=== PATIENT | female | born 1985 | race Caucasian/White ===

== ENCOUNTER 2017-02-28 15:30 | Outpatient (CLI) | payer MEDICAID ==
[2017-02-28 16:38] LABS: ABSOLUTE BASOPHILS # (AUTO) 0.1 10^3/uL (0.0-0.2); ABSOLUTE EOSINOPHILS # (AUTO) 0.1 10^3/uL (0.0-0.6); ABSOLUTE MONOCYTES (AUTO) 0.7 10^3/uL (0.1-1.4); ABSOLUTE NEUT (AUTO) 10.9 10^3/uL (1.7-8.2); BASOPHILS % (AUTO) 0.4 % (0-2); EOSINOPHILS % (AUTO) 0.8 % (0-6); HEMATOCRIT 34.8 % (36.0-47.0); HEMOGLOBIN 11.8 g/dL (12.0-15.5); HGB HCT DIFFERENCE 0.6; LYMPHOCYTES % (AUTO) 20.1 % (13-45); MEAN CORPUSCULAR HEMOGLOBIN 29.9 pg (27.0-33.4); MEAN CORPUSCULAR HGB CONC 33.9 g/dL (32.0-36.0); MEAN CORPUSCULAR VOLUME 88 fl (80-97); MONOCYTES % (AUTO) 4.9 % (3-13); RED BLOOD COUNT 3.95 10^6/uL (3.72-5.28); SEGMENTED NEUTROPHILS % (AUTO) 73.8 % (42-78); WHITE BLOOD COUNT 14.8 10^3/uL (4.0-10.5)
[2017-02-28 17:17] LABS: APPEARANCE,URINE CLEAR; BILIRUBIN,URINE NEGATIVE (NEGATIVE); GLUCOSE, URINE NEGATIVE (NEGATIVE); KETONES,URINE NEGATIVE (NEGATIVE); LEUKOCYTE ESTERASE,URINE NEGATIVE (NEGATIVE); NITRITE,URINE NEGATIVE (NEGATIVE); PROTEIN,URINE NEGATIVE (NEGATIVE); URINE SPECIFIC GRAVITY 1.005; UROBILINOGEN,URINE NEGATIVE mg/dL (<2.0)
[2017-02-28 17:43] LABS: URINE BARBITURATES SCREEN NEGATIVE; URINE METHADONE SCREEN NEGATIVE; URINE OPIATES LOW NEGATIVE; URINE PHENCYCLIDINE SCREEN NEGATIVE
[2017-02-28 19:00] LABS: TOTAL RBC COUNT 2034; TYPE IN FILE? TYPE IN FILE; VOL OF FETOMATERNAL HEMORRHAGE 0 ML (0)
== END 2017-02-28 17:32 | disposition home or self-care (01) ==
LOC: LC 15:30
PROVIDERS: ATTEND Obstetrics & Gynecology
PROC: 4A1HXCZ Monitoring of Products of Conception, Cardiac Rate, External Approach (ICD-10-PCS; principal; 2017-02-28)
DX: O46.92 Antepartum hemorrhage, unspecified, second trimester (principal); Z3A.23 23 weeks gestation of pregnancy
CPT/HCPCS: 36415; 80307; 81001; 82962; 85025; 85460; 86900; 86901

== ENCOUNTER 2017-05-13 12:38 | Outpatient (CLI) | payer MEDICAID | END 2017-05-13 13:20 | disposition home or self-care (01) | LOC: ER 12:38 → LC 13:20 | PROVIDERS: ATTEND Obstetrics & Gynecology | PROC: 4A1HXCZ Monitoring of Products of Conception, Cardiac Rate, External Approach (ICD-10-PCS; principal; 2017-05-13) | DX: O36.8130 Decreased fetal movements, third trimester, not applicable or unspecified (principal); Z3A.34 34 weeks gestation of pregnancy | CPT/HCPCS: 59025 ==

== ENCOUNTER 2017-05-16 15:17 | Outpatient (CLI) | payer MEDICAID ==
--- NOTE | 2017-05-16 16:04 | Non Stress Test Report ---
Non Stress Test Datetime Report Generated by CPN: 05/16/2017 16:04 DEMOGRAPHIC EGA NST: 34.4 INDICATION Indication for Study: Ordered by Provider MONITORING Monitor Explained: Monitor Explained; Test Explained; Patient Verbalized Understanding Time on Monitor: 05/16/2017 15:27 Time off Monitor: 05/16/2017 15:48 NST Duration: 21 NST INTERVENTIONS NST Interventions: PO Hydration; Reposition Patient Physician Notified NST: Dr. Masood BABY A: [id number] BABY A Movement : Present Contraction Frequency : 6-7 FHR Baseline : 125 Accelerations : 15X15 Decelerations : None Variability : Moderate 6-25bpm NST Review: Meets Criteria for Reactive NST NST Review and Verified By : SHELTON Quezada Results: Reactive NST REPORT Report Trigger: Send Report
== END 2017-05-16 15:58 | disposition home or self-care (01) ==
LOC: LC 15:17
PROVIDERS: ATTEND Specialist
PROC: 4A1HXCZ Monitoring of Products of Conception, Cardiac Rate, External Approach (ICD-10-PCS; principal; 2017-05-16)
DX: Z34.93 Encounter for supervision of normal pregnancy, unspecified, third trimester (principal)
CPT/HCPCS: 59025

== ENCOUNTER 2017-06-06 22:23 | Outpatient (CLI) | payer MEDICAID ==
[2017-06-06 22:57] LABS: APPEARANCE,URINE CLEAR; BILIRUBIN,URINE NEGATIVE (NEGATIVE); GLUCOSE, URINE 50 mg/dL (NEGATIVE); KETONES,URINE NEGATIVE (NEGATIVE); LEUKOCYTE ESTERASE,URINE NEGATIVE (NEGATIVE); NITRITE,URINE NEGATIVE (NEGATIVE); PROTEIN,URINE NEGATIVE (NEGATIVE); URINE SPECIFIC GRAVITY 1.002; UROBILINOGEN,URINE NEGATIVE mg/dL (<2.0)
[2017-06-06 23:12] LABS: URINE BARBITURATES SCREEN NEGATIVE; URINE METHADONE SCREEN NEGATIVE; URINE OPIATES LOW NEGATIVE; URINE PHENCYCLIDINE SCREEN NEGATIVE
[2017-06-07] MEDS ORDERED: ONDANSETRON 4 MG TAB.RAPDIS PO ONE (00:14)
[2017-06-07] MEDS ORDERED: HYDROXYZINE PAMOATE 50 MG CAPSULE PO ONE (00:14)
[2017-06-07] MEDS ORDERED: HYDROXYZINE PAMOATE 50 MG CAPSULE ONE (00:18)
[2017-06-07] MEDS ORDERED: ONDANSETRON 4 MG TAB.RAPDIS ONE (00:19)
--- NOTE | 2017-06-07 00:44 | Non Stress Test Report ---
Non Stress Test Datetime Report Generated by CPN: 06/07/2017 00:44 DEMOGRAPHIC Test Number: 4 EGA NST: 37.4 INDICATION Indication for Study: Ordered by Provider; Other Indication for Study (NST) Other: LC MONITORING Monitor Explained: Monitor Explained; Test Explained; Patient Verbalized Understanding; Other Time on Monitor: 06/06/2017 22:39 Time off Monitor: 06/07/2017 00:02 NST Duration: 83 NST INTERVENTIONS NST Interventions: PO Hydration Physician Notified NST: yes BABY A: [id number] BABY A Movement : Present Contraction Frequency : 8-13 FHR Baseline : 125 Accelerations : 15X15 Decelerations : None Variability : Moderate 6-25bpm NST Review: Meets Criteria for Reactive NST NST Review and Verified By : Deanna Stanford RN NST Results: Reactive NST REPORT Report Trigger: Send Report
== END 2017-06-07 00:02 | disposition home or self-care (01) ==
LOC: LC 22:23
PROVIDERS: ATTEND Obstetrics & Gynecology Gynecology
PROC: 4A1HXCZ Monitoring of Products of Conception, Cardiac Rate, External Approach (ICD-10-PCS; principal; 2017-06-06)
DX: O47.1 False labor at or after 37 completed weeks of gestation (principal); Z3A.37 37 weeks gestation of pregnancy
CPT/HCPCS: 81005; 80307; 59025; S0119; J3490

== ENCOUNTER 2017-06-12 22:55 | Outpatient (CLI) | payer MEDICAID ==
[2017-06-12 23:33] LABS: APPEARANCE,URINE CLOUDY; BILIRUBIN,URINE NEGATIVE (NEGATIVE); GLUCOSE, URINE NEGATIVE (NEGATIVE); KETONES,URINE NEGATIVE (NEGATIVE); LEUKOCYTE ESTERASE,URINE TRACE (NEGATIVE); NITRITE,URINE NEGATIVE (NEGATIVE); PROTEIN,URINE NEGATIVE (NEGATIVE); URINE SPECIFIC GRAVITY 1.009; UROBILINOGEN,URINE NEGATIVE mg/dL (<2.0)
[2017-06-12 23:53] LABS: URINE BARBITURATES SCREEN NEGATIVE; URINE METHADONE SCREEN NEGATIVE; URINE OPIATES LOW NEGATIVE; URINE PHENCYCLIDINE SCREEN NEGATIVE
== END 2017-06-13 00:39 | disposition home or self-care (01) ==
LOC: LC 22:55
PROVIDERS: ATTEND Obstetrics & Gynecology
PROC: 4A1HXCZ Monitoring of Products of Conception, Cardiac Rate, External Approach (ICD-10-PCS; principal; 2017-06-12)
DX: O47.1 False labor at or after 37 completed weeks of gestation (principal); Z3A.38 38 weeks gestation of pregnancy
CPT/HCPCS: 59025; 80307; 81005

== ENCOUNTER 2017-06-13 07:41 | Inpatient (IN) | payer MEDICAID ==
[2017-06-13 08:19] LABS: APPEARANCE,URINE SLIGHTLY-CLOUDY; BILIRUBIN,URINE NEGATIVE (NEGATIVE); GLUCOSE, URINE NEGATIVE (NEGATIVE); KETONES,URINE NEGATIVE (NEGATIVE); LEUKOCYTE ESTERASE,URINE TRACE (NEGATIVE); NITRITE,URINE NEGATIVE (NEGATIVE); PROTEIN,URINE NEGATIVE (NEGATIVE); URINE SPECIFIC GRAVITY 1.012; UROBILINOGEN,URINE NEGATIVE mg/dL (<2.0)
[2017-06-13] MEDS ORDERED: IBUPROFEN 800 MG TABLET ONE (08:33)
[2017-06-13] MEDS ORDERED: ACETAMINOPHEN WITH CODEINE #3 TABLET ONE (08:33)
[2017-06-13 08:38] LABS: URINE BARBITURATES SCREEN NEGATIVE; URINE METHADONE SCREEN NEGATIVE; URINE OPIATES LOW NEGATIVE; URINE PHENCYCLIDINE SCREEN NEGATIVE
[2017-06-13 09:03] LABS: HEMATOCRIT 39.4 % (36.0-47.0); HEMOGLOBIN 13.2 g/dL (12.0-15.5); HGB HCT DIFFERENCE 0.2; MEAN CORPUSCULAR HEMOGLOBIN 29.4 pg (27.0-33.4); MEAN CORPUSCULAR HGB CONC 33.5 g/dL (32.0-36.0); MEAN CORPUSCULAR VOLUME 88 fl (80-97); RED BLOOD COUNT 4.48 10^6/uL (3.72-5.28); RED CELL DISTRIBUTION WIDTH 14.2 % (11.5-14.0); WHITE BLOOD COUNT 21.7 10^3/uL (4.0-10.5)
[2017-06-13 09:24] LABS: BASOPHILS % (MANUAL) 0 % (0-2); EOSINOPHILS % (MANUAL) 0 % (0-6); LYMPHOCYTES % (MANUAL) 14 % (13-45); TOTAL CELLS COUNTED 100
[2017-06-13 09:25] LABS: ANISOCYTOSIS SLIGHT; POIKILOCYTOSIS SLIGHT; TEAR DROP CELLS SLIGHT; TOXIC GRANULATION SLIGHT
[2017-06-13] MEDS ORDERED: DIPHENHYDRAMINE HCL 25 MG CAPSULE PO PRN (09:25)
[2017-06-13] MEDS ORDERED: MEASLES,MUMPS&RUBELLA VACC/PF 0.5 ML VIAL SUBCUT PRN (09:25)
[2017-06-13] MEDS ORDERED: ZOLPIDEM TARTRATE 5 MG TABLET PO PRN (09:25)
[2017-06-13] MEDS ORDERED: DIBUCAINE 1% OINTMENT 28 GM TP PRN (09:25)
[2017-06-13] MEDS ORDERED: MISOPROSTOL 0.2 MG TABLET PR PRN (09:25)
[2017-06-13] MEDS ORDERED: ACETAMINOPHEN 650 MG SUPP.RECT PR PRN (09:25)
[2017-06-13] MEDS ORDERED: NA PHOS,M-B/NA PHOS,DI-BA (ADULT) 133 ML ENEMA PR PRN (09:25)
[2017-06-13] MEDS ORDERED: OXYTOCIN/NORMAL SALINE 20 UNIT/1,000 ML RTUINJ IV PRN (09:25)
[2017-06-13] MEDS ORDERED: PSEUDOEPHEDRINE HCL 30 MG TABLET PO PRN (09:25)
[2017-06-13] MEDS ORDERED: GLYCERIN/WITCH HAZEL LEAF 1 EACH MED..PAD TP PRN (09:25)
[2017-06-13] MEDS ORDERED: PROMETHAZINE HCL INJ 25 MG/1 ML VIAL IV PRN (09:25)
[2017-06-13] MEDS ORDERED: BENZOCAINE/MENTHOL AEROSOL SPRAY 56 ML TOP PRN (09:25)
[2017-06-13] MEDS ORDERED: PROMETHAZINE HCL 25 MG TABLET PO PRN (09:25)
[2017-06-13] MEDS ORDERED: ACETAMINOPHEN WITH CODEINE #3 TABLET PO PRN (09:25)
[2017-06-13] MEDS ORDERED: PROMETHAZINE HCL 25 MG SUPP.RECT PR PRN (09:25)
[2017-06-13] MEDS ORDERED: MAGNESIUM HYDROXIDE SUSP 30 ML UDCUP PO PRN (09:25)
[2017-06-13] MEDS ORDERED: DIPH/PERTUSS(ACELL)/TETANUS VAC/PF 0.5 ML SYR (>=10YO) IM PRN (09:25)
[2017-06-13] MEDS ORDERED: MORPHINE SULFATE 10 MG/ML INJ ONE (09:29)
[2017-06-13] MEDS ORDERED: MORPHINE SULFATE 10 MG/ML INJ IV ONE (09:30)
--- NOTE | 2017-06-13 09:46 | Delivery Summary ---
Del Sum A-C Datetime Report Generated by CPN: 06/13/2017 09:46 DELIVERY PERSONNEL DELIVERY PERSONNEL: [id number] Delivery Doctor:: Asmita Galarza CNM Labor and Delivery Nurse:: Juju Balbuena RNpatient support partner Nurse:: Karyna Correia RN Nursery Nurse:: Lanie Ansari RN Animal Control Licensing Worker/TALENT ANALYST: Asuncion Siegel Additional Personnel: : Maria Ines Suárez RN MATERNAL INFORMATION Delivery Anesthesia: None Medications After Delivery: Pitocin Bolus-Please Comment; Pitocin Drip 20 Units/1000ml NSS; Other-Please Comment Meds After Delivery Comment: Pitocin 20 units in 1 L NS bolusing per order Cytotec 1000mcg ND Estimated Blood Loss (ml): 100 Maternal Complications: Precipitous Labor (<3hrs) Provider Comments: Pt. quickly progressed from 4 to 8 to 9-complete and pushed baby through with tight nuchal x1. Baby with vigorous respiratory effort and cry spontaneously at . Short cord, allowed to stop pulsating then clamped x2 and cut by FOB. Baby to maternal abdomen skin to skin (3vc noted). Placenta delivered spontaneously intact. Vaginal and perineal inspection revealed no lacerations. Fundus firm @ U, bleeding stable. Mother and baby remain skin to skin,stable and bonding. LABOR SUMMARY EDC: 06/23/2017 00:00 No. Babies in Womb: 1 Attempted: No Labor Anesthesia: None LABOR INFORMATION Reason for Induction: Not Applicable Onset of Labor: 06/13/2017 02:00 Complete Dilatation: 06/13/2017 08:14 Oxytocin: N/A Group B Beta Strep: NEGATIVE Antibiotics # of Doses: 0 Antibiotics Time of Last Dose: n/a Name of Antibiotic Given: n/a Steroids Given: None Reason Steroids Not Administered: Not Applicable MEMBRANES Membranes Rupture Method: Artificial Rupture of Membranes: 06/13/2017 08:11 Length of Rupture (hr): 0.07 Amniotic Fluid Color: Clear Amniotic Fluid Amount: Moderate Amniotic Fluid Odor: Normal STAGES OF LABOR Stage 1 hr: 6 Stage 1 min: 14 Stage 2 hr: 0 Stage 2 min: 1 Stage 3 hr: 0 Stage 3 min: 7 Total Time in Labor hr: 6 Total Time in Labor min: 22 VAGINAL DELIVERY Episiotomy: None Laceration #1: None Laceration Extension #1: N/A Laceration Repair: Not Applicable Sponge Count Correct: N/A Sharps Count Correct: N/A CSECTION DELIVERY Primary Indication: N/A Secondary Indication: N/A CSection Incidence: N/A Labor: N/A Elective: N/A CSection Incision: N/A BABY A INFORMATION Delivery Date/Time: 06/13/2017 08:15 Method of Delivery: Vaginal Born in Route : No : N/A Forceps: N/A Vacuum Extraction: N/A Shoulder Dystocia : No PRESENTATION/POSITION BABY A Presentation: Cephalic Cephalic Presentation: Vertex Vertex Position: Right Occipital Anterior Breech Presentation: N/A PLACENTA INFORMATION BABY A Placenta Delivery Time : 06/13/2017 08:22 Placenta Method of Delivery: Spontaneous Placenta Status: Delivered SCORES BABY A Heart Rate 1 min: >100 bpm Resp Effort 1 min: Good Cry Reflex Irritability 1 min: Cough or Sneeze or Pulls Away Muscle Tone 1 min: Active Motion Color 1 min: Blue/Pale Resuscitation Effort 1 min: Tactile Stimulation SCORE 1 MIN: 8 Heart Rate 5 min: >100 bpm Resp Effort 5 min: Good Cry Reflex Irritability 5 min: Cough or Sneeze or Pulls Away Muscle Tone 5 min: Active Motion Color 5 min: Body [place], Extremities Blue Resuscitation Effort 5 min: Tactile Stimulation SCORE 5 MIN: 9 INFANT INFORMATION BABY A Gestational Age at Delivery: 38.4 Gestational Status: Early Term- 37- 38.6 Weeks Infant Outcome : Liveborn Condition : Stable Infant Sex: Male IDENTIFICATION BABY A Verification Date/Time: 06/13/2017 08:41 ID Band Number: [id number] Mother's Name Verified: Yes RN Verifying Infant: A Surendra CHINO Additional Verifying Personnel: D Aspenmomoidbina RNC WEIGHT/LENGTH BABY A Infant Birthweight (gm): 3300 Weight (lb): 7 Infant Weight (oz): 4 Length (in): 20.50 Length (cm): 52.07 CORD INFORMATION BABY A No. Cord Vessels: 3 Nuchal Cord : Around Neck x1, Tight Cord Blood Taken: Yes-For Eval (Mom's Blood Type - or O+) Infant Suction: Mouth; Nose ASSESSMENT BABY A Infant Complications: Extended Bradycardia; Other Infant Complications- Other: terminal meconium Physical Findings at Delivery: Puncture Wound from Scalp Electrode Physical Findings- Other: first void at delivery Respirations: Appears Normal Skin to Skin: Yes Skin to Skin Time (min): 60 Restaurant Greeter/ALS Called : No Infant Care By: Kelvin Correia RN Transferred To: Remains with Mother BABY B INFORMATION : N/A SIGNATURES Assignment: Karen Correia MD Signature: with User ID: Filemon : with User ID: [email or web address]
[2017-06-13] MEDS ORDERED: NORMAL SALINE 250 ML IV PRN (10:09)
--- NOTE | 2017-06-13 10:26 | Admission Physical ---
Datetime Report Generated by CPN: 06/13/2017 10:26 CURRENT ADMISSION Chief Complaint: Uterine Contractions Indication for Induction: Not Applicable Indication for Induction: Term, Intrauterine ; Active Labor Admit Plan: Admit to Unit; Initiate Labor Protocol ALLERGIES Medication Allergies: No Medication Allergies: No Known Allergies (06/12/2017) Medication Allergies: No Known Allergies (06/06/2017) Medication Allergies: No Known Allergies (05/30/2017) Medication Allergies: No Known Allergies (05/16/2017) Medication Allergies: No Known Allergies (05/13/2017) Medication Allergies: No Known Allergies (02/28/2017) Medication Allergies: No Known Allergies (10/18/2013) Latex: No Latex Allergies Food Allergies: N/A Environmental Allergies: N/A OBSTETRICAL HISTORY EDC: 06/23/2017 00:00 : 5 Para: 3 Term: 3 : 0 SAB: 1 IAB: 0 Ectopic: 0 Livin Cesareans: 0 VBACs: 0 Multiple Births: 0 Gestational Diabetes: No Rh Sensitization: No Incompetent Cervix: No TYLER: No Infertility: No ART Treatment: No Uterine Anomaly: No IUGR: No Hx Previous C/S: No Macrosomia: No Hx Loss/Stillborn: No PIH: No Hx : No Placenta Previa/Abruption: No Depression/PP Depression: No PTL/PROM: No Post Hemorrhage: No Current Procedures: Ultrasound; NST; Amniocentesis/Genetic Obstetrical History Comments: G1: 40 weeks 2008 G2: SAB G3: 38 weeks 2010 G4: 39.4 2013 G5: Current , pt states previa cleared at 30 weeks gestation, and that fetus flagged for Trisomy 18 but growth scans showed its not a concern, poly. SEE RECORDS Alcohol: No Marijuana : No Cocaine: No Other Illicit Drugs: No Cigarettes: Current Some Day Smoker. [id number] Cigarette Frequency: 5 - 10 per day Advised to Stop: Yes MEDICAL HISTORY Diabetes: No Blood Transfusion: No Pulmonary Disease (Asthma, TB): No Breast Disease: No Hypertension: No [place] Roofer Surgery: No Heart Disease: No Hosp/Surgery: Yes Autoimmune Disorder: No Anesthetic Complications: No Kidney Disease: No Abnormal Pap Smear: No Neuro/Epilepsy: No Psychiatric Disorders: No Other Medical Diseases: No Hepatitis/Liver Disease: No Significant Family History: No Varicosities/Phlebitis: No Trauma/Violence : No Thyroid Dysfunction: No Medical History Comments: lap neal in 2009, tonsillectomy 1991, D_C in 2010 Rhogam on 11-02-2016 INFECTIOUS HISTORY Gonorrhea: No Genital Herpes: No Chlamydia: No Tuberculosis: No Syphilis: No Hepatitis: No HIV/AIDS Exposure: No Rash or Viral Illness: Yes HPV: No Infectious History Comments: Ringworm in 03/2017 tx with diflucan PHYSICAL EXAM General: Normal Neurologic: Normal Heart: Normal Lungs: Normal Extremities: Normal Pelvic Type: Adequate Physical Exam Comments: Exam done after delivery. Pt. presented to unit and quickly delivered a viable baby boy. Vital Signs: Reviewed; Within Normal Limits VAGINAL EXAM Dilatation: 8 Effacement: 100 Station: -1 Contraction Comments: q2min MEMBRANES Membranes: Ruptured Amniotic Fluid Color: Clear FETUS A EGA: 38.4 Monitoring: External US; Internal Scalp Electrode FHR- Baseline: 110 FHR Comments: Pt. on monitor for 4 min with moderate variability then prolonged decel followed by delivery Admit Comment: 31yo @ 38w4d into L_D with UC since yesterday that worsen after being discharged at 0130. Pt. was 4cm on arrival then as I arrived in L_D pt. had decel I went into room and after position changes baby recovered on and off to 110s. We continued position chagnes and pt. progressed to 8-9/c/-1 with bulbing bag and was AROM with FSE. With next contraction pt. started pushing and quickly delivered a baby boy through tight nuchal x1. complicated by pos. quad screen for T18 with negative NIP screen, a placenta previa that was resolved earlier in and current smoker. Blood type O neg and GBS Neg. PLANS FOR LABOR AND DELIVERY Labor and Delivery: None Pain Management: Medications; Epidural Feeding Preference: Breast Benefit of Breast Feed Discussed: Yes Circumcision: Yes INFORMED CONSENT Assignment: Karen Correia MD Signature: with User ID: Filemon : with User ID: Filemon
[2017-06-13] MEDS: PRENATAL VITAMIN W DHA CAPSULE PO SCH (10:36)
[2017-06-13] MEDS: FAMOTIDINE 20 MG TABLET PO SCH ×2 (10:36→22:12)
[2017-06-13] MEDS: FERROUS SULFATE 325 MG TABLET PO SCH ×2 (10:37→17:18)
[2017-06-13] MEDS: DOCUSATE SODIUM 100 MG CAPSULE PO SCH ×2 (10:37→17:18)
[2017-06-13] MEDS: SENNOSIDES/DOCUSATE 8.6-50 MG 1 EACH TABLET PO SCH (10:37)
[2017-06-13] MEDS: IBUPROFEN 800 MG TABLET PO SCH ×2 (13:14→22:12)
[2017-06-13] MEDS: ACETAMINOPHEN WITH CODEINE #3 TABLET PO PRN ×3 (14:25→22:13)
[2017-06-13 20:36] VITALS: BP 124/54
[2017-06-14] MEDS: ACETAMINOPHEN WITH CODEINE #3 TABLET PO PRN ×4 (02:54→18:03)
[2017-06-14] MEDS: IBUPROFEN 800 MG TABLET PO SCH ×2 (05:10→14:16)
[2017-06-14 08:11] LABS: HEMATOCRIT 36.5 % (36.0-47.0); HEMOGLOBIN 12.2 g/dL (12.0-15.5); HGB HCT DIFFERENCE 0.1; MEAN CORPUSCULAR HEMOGLOBIN 29.6 pg (27.0-33.4); MEAN CORPUSCULAR HGB CONC 33.4 g/dL (32.0-36.0); MEAN CORPUSCULAR VOLUME 89 fl (80-97); RED BLOOD COUNT 4.12 10^6/uL (3.72-5.28); RED CELL DISTRIBUTION WIDTH 14.1 % (11.5-14.0); WHITE BLOOD COUNT 16.3 10^3/uL (4.0-10.5)
--- NOTE | 2017-06-14 09:04 | PDOC PROGRESS REPORT ---
Subjective-OB Subjective: Post Delivery Day: 1 32 year old. Denies any needs at this time, voiding without difficulty, tolerating diet, pain is well controlled. Would like early d/c if possible. Physical Exam (OB) Vital Signs: Temp Pulse Resp BP Pulse Ox 98.2 F 66 18 124/54 L 98 06/13/17 19:35 06/13/17 19:35 06/13/17 19:35 06/13/17 19:35 06/13/17 19:35 Intake & Output 06/13/17 06/14/17 06/15/17 06:59 06:59 06:59 Weight 90 kg - PIH/Pre-Eclampsia Clonus: Negative Headache: Absent Epigastric Pain: No Visual Changes: No - Lochia Lochia Amount: Scant < 10 ml Lochia Color: Rubra/Red - Abdomen Description: Soft, Round Hernia Present: No Fundal Description: Firm Fundal Height: u/u - u/2 Objective-Diagnostic Laboratory: 06/14/17 08:00 06/13/17 06/13/17 06/14/17 08:48 08:48 07:54 WBC 21.7 H RBC 4.48 Hgb 13.2 Hct 39.4 MCV 88 MCH 29.4 MCHC 33.5 RDW 14.2 H Plt Count 257 Seg Neutrophils % Not Reportable Lymphocytes % Not Reportable Monocytes % Not Reportable Eosinophils % Not Reportable Basophils % Not Reportable Absolute Neutrophils Not Reportable Absolute Lymphocytes Not Reportable Absolute Monocytes Not Reportable Absolute Eosinophils Not Reportable Absolute Basophils Not Reportable Blood Type O NEGATIVE Cancelled Antibody Screen POSITIVE 06/14/17 08:00 WBC 16.3 H RBC 4.12 Hgb 12.2 Hct 36.5 MCV 89 MCH 29.6 MCHC 33.4 RDW 14.1 H Plt Count 235 Seg Neutrophils % Lymphocytes % Monocytes % Eosinophils % Basophils % Absolute Neutrophils Absolute Lymphocytes Absolute Monocytes Absolute Eosinophils Absolute Basophils Blood Type Antibody Screen Assessment and Plan(PN) - Assessment and Plan (1) Vaginal delivery Is this a current diagnosis for this admission?: Yes Plan: routine pp care may d/c home today if baby is d/c home, may cancel d/c if not. - Time Spent with Patient Time with patient: Less than 15 minutes Critical Time spent with patient: Less than 15 minutes Medications reviewed and adjusted accordingly: Yes - Disposition Anticipated Discharge: Home Within: within 24 hours
--- NOTE | 2017-06-14 09:12 | PDOC DISCHARGE SUMMARY ---
Final Diagnosis Discharge Date: 06/14/17 - Final Diagnosis (1) Vaginal delivery Is this a current diagnosis for this admission?: Yes Discharge Data - Discharge Medication Home Medications: Vits96/Iron Fum/Folic [ Tablet] 1 each PO DAILY 05/23/11 Docusate Sodium [Colace 100 mg Capsule] 100 mg PO BID #60 capsule 06/14/17 Ibuprofen [Motrin 800 mg Tablet] 800 mg PO Q8 #60 tablet 06/14/17 Gestational Age: 38.4 Reason(s) for Admission: Onset of Labor Procedures: NST Intrapartum Procedure(s): Spontaneous Vaginal Delivery - [place] Data Baby 1 Male at 1 minute: 8 at 5 minutes: 9 Weight: 3300 kg Home with Mother: Yes Complications: No - Diagnosis Test Laboratory: Temp Pulse Resp BP Pulse Ox 98.2 F 66 18 124/54 L 98 06/13/17 19:35 06/13/17 19:35 06/13/17 19:35 06/13/17 19:35 06/13/17 19:35 06/13/17 06/13/17 06/14/17 07:50 08:48 08:00 RBC 4.48 4.12 Hgb 13.2 12.2 Hct 39.4 36.5 Urine Opiates Screen NEGATIVE - Discharge information/Instructions Discharge Activity: Activity As Tolerated, Pelvic Rest, No tub bath Discharge Diet: Regular Disposition: HOME, SELF-CARE Follow up with: [facility] in: 4, Weeks
[2017-06-14] MEDS: DOCUSATE SODIUM 100 MG CAPSULE PO SCH ×2 (09:37→17:33)
[2017-06-14] MEDS: FAMOTIDINE 20 MG TABLET PO SCH (09:37)
[2017-06-14] MEDS: FERROUS SULFATE 325 MG TABLET PO SCH ×2 (09:37→17:33)
[2017-06-14] MEDS: PRENATAL VITAMIN W DHA CAPSULE PO SCH (09:37)
[2017-06-14] MEDS: SENNOSIDES/DOCUSATE 8.6-50 MG 1 EACH TABLET PO SCH (09:38)
--- NOTE | 2017-06-14 13:38 | Warning Signs in Babies ---
VOD Warning Signs Datetime Report Generated by [facility]: 06/14/2017 13:37 VOD - Warning Signs in Babies: Needs to be viewed. (06/14/2017 13:37:Annalee Enamorado)
--- NOTE | 2017-06-14 13:38 | Warning Signs in Babies ---
VOD Warning Signs Datetime Report Generated by [facility]: 06/14/2017 13:38 VOD - Warning Signs in Babies: Needs to be viewed. (06/14/2017 13:37:Annalee Enamorado)
--- NOTE | 2017-06-14 13:57 | Warning Signs in Babies ---
VOD Warning Signs Datetime Report Generated by [facility]: 06/14/2017 13:56 VOD - Warning Signs in Babies: Needs to be viewed. (06/14/2017 13:56:Annalee Enamorado)
--- NOTE | 2017-06-14 13:57 | Warning Signs in Babies ---
VOD Warning Signs Datetime Report Generated by [facility]: 06/14/2017 13:57 VOD - Warning Signs in Babies: Needs to be viewed. (06/14/2017 13:56:Annalee Enamorado)
== END 2017-06-14 19:09 | disposition home or self-care (01) | DRG 775 ==
LOC: LC 07:41 → LR 08:15 → 2S 10:24
PROVIDERS: ADMIT Obstetrics & Gynecology; ATTEND Obstetrics & Gynecology
PROC: 10E0XZZ Delivery of Products of Conception, External Approach (ICD-10-PCS; principal; 2017-06-13)
PROC: 4A1HXCZ Monitoring of Products of Conception, Cardiac Rate, External Approach (ICD-10-PCS; 2017-06-13)
PROC: 10907ZC Drainage of Amniotic Fluid, Therapeutic from Products of Conception, Via Natural or Artificial Opening (ICD-10-PCS; 2017-06-13)
PROC: 4A1H7CZ Monitoring of Products of Conception, Cardiac Rate, Via Natural or Artificial Opening (ICD-10-PCS; 2017-06-13)
PROC: 10H073Z Insertion of Monitoring Electrode into Products of Conception, Via Natural or Artificial Opening (ICD-10-PCS; 2017-06-13)
PROC: 3E0234Z Introduction of Serum, Toxoid and Vaccine into Muscle, Percutaneous Approach (ICD-10-PCS; 2017-06-14)
DX: O76 Abnormality in fetal heart rate and rhythm complicating labor and delivery (principal); O77.0 Labor and delivery complicated by meconium in amniotic fluid; O99.334 Smoking (tobacco) complicating childbirth; F17.210 Nicotine dependence, cigarettes, uncomplicated; O69.1XX0 Labor and delivery complicated by cord around neck, with compression, not applicable or unspecified; O26.893 Other specified pregnancy related conditions, third trimester; O62.3 Precipitate labor; O69.3XX0 Labor and delivery complicated by short cord, not applicable or unspecified; Z3A.38 38 weeks gestation of pregnancy; Z90.49 Acquired absence of other specified parts of digestive tract; Z67.41 Type O blood, Rh negative; Z37.0 Single live birth
CPT/HCPCS: 36415; 80307; 81005; 85025; 85027; 85461; 86592; 86850; 86870; 86900; 86901; 86920; 86922; J2270; J2590; J2790; J3490

== ENCOUNTER 2020-06-29 14:16 | Emergency (ER) | payer SELFPAY ==
--- NOTE | 2020-06-29 15:18 | ER Document Report ---
ED Hand/Wrist Injury - General Chief Complaint: Wrist Injury Stated Complaint: FALL/RIGHT HAND PAIN,SWELLING Time Seen by Provider: 06/29/20 14:49 Primary Care Provider: HARVEY ALBA MD [ACTIVE STAFF] - Follow up as needed Mode of Arrival: Ambulatory Information source: [facility], [facility] Records Notes: This 35-year-old female patient comes emergency room complaining of injury to her right hand. She reports a syncopal episode while standing in the shower about 7 AM this morning. She says she was washing her hair, felt a sensation like she was going to pass out, fell in the tub where her spouse found her and was waking her up shortly after the fall. She states that her right ribs are little sore, and the right lateral elbow with primary pain and swelling in the right dorsal hand. She reports she has had 2 other episodes of syncope this past year, one was whil e she was in the shower similar to the day, 1 was while she was doing laundry and bending over putting clothes in the dryer. She has not been evaluated for the syncopal episodes. She did see her doctor yesterday for a red right eye with drainage for the past 5 to 6 days. She was put on an antibiotic eyedrop. TRAVEL OUTSIDE OF THE [place] IN LAST 30 DAYS: No - Related Data Allergies/Adverse Reactions: No Known Allergies Allergy (Verified 06/29/20 14:58) Past Medical History - General Information source: Patient - `, [facility] Records - Social History Smoking Status: Current Every Day Smoker Cigarette use (# per day): Yes - 1/3 PPD Chew tobacco use (# tins/day): No Smoking Education Provided: No Frequency of alcohol use: None Drug Abuse: None Lives with: Family, Spouse/Significant other Family History: Reviewed & Not Pertinent Patient has homicidal ideation: No - Medical History Medical History: Negative Infectious Medical History: Reports: Other - COVID-19 infection in February 2020. Past Surgical History: Reports: Hx Cholecystectomy, Hx Dilation and Curettage, Hx Orthopedic Surgery - Toe surgery, Hx Tonsillectomy - Immunizations Hx Diphtheria, Pertussis, Tetanus Vaccination: No Review of Systems - Review of Systems Constitutional: No symptoms reported EENT: No symptoms reported Cardiovascular: See HPI, Syncope Respiratory: No symptoms reported Gastrointestinal: No symptoms reported Genitourinary: No symptoms reported Female Genitourinary: No symptoms reported Musculoskeletal: No symptoms reported Skin: No symptoms reported Hematologic/Lymphatic: No symptoms reported Neurological/Psychological: See HPI Physical Exam - Vital signs Vitals: Temp Pulse Resp BP Pulse Ox 99.1 F 94 16 114/77 96 06/29/20 14:40 06/29/20 14:40 06/29/20 14:40 06/29/20 14:40 06/29/20 14:40 Interpretation: Normal - General General appearance: Appears well, Alert In distress: None - HEENT Head: Normocephalic, Atraumatic Conjunctiva: Injected - The right conjunctiva is injected with some crusting and drainage. There are no preauricular nodes palpated. Pupils: PERRL - Respiratory Respiratory status: No respiratory distress Breath sounds: Normal Chest palpation: Tender - Some right lateral rib tenderness - Cardiovascular Rhythm: Regular Heart sounds: Normal auscultation Murmur: No - Abdominal Inspection: Normal - Back Back: Normal - Extremities General upper extremity: Other - Right dorsal hand is swollen and painful dorsally over the second metacarpal, first webspace, and base of the first metacarpal. General lower extremity: Normal inspection - Neurological Neuro grossly intact: Yes - Psychological Associated symptoms: Normal affect, Normal mood - Skin Skin Temperature: Warm Skin Moisture: Dry Skin Color: Normal Course - Re-evaluation Re-evalutation: 06/29/20 16:48 Velcro cock-up splint was placed on the right hand and wrist by the PCT. It fits well and prevents motion at the hand where the injury is. - Vital Signs Vital signs: Temp Pulse Resp BP Pulse Ox 99.1 F 94 16 114/77 96 06/29/20 14:40 06/29/20 14:40 06/29/20 14:40 06/29/20 14:40 06/29/20 14:40 - Laboratory Result Diagrams: 06/29/20 15:42 06/29/20 15:42 Laboratory results interpreted by me: 06/29/20 15:42 WBC 12.9 H RDW 14.1 H - Diagnostic Test Radiology reviewed: Image reviewed, Reports reviewed - Right rib x-ray with PA chest is unremarkable. Right hand x-ray does not show osseous injury. - EKG Interpretation by Me EKG shows normal: Sinus rhythm, [place], Intervals, QRS Complexes, ST-T Waves Rate: Normal - 76 Rhythm: NSR Discharge - Discharge Clinical Impression: Syncope and collapse Contusion of right hand Qualifiers: Encounter type: initial encounter Qualified Code(s): S60.221A - Contusion of right hand, initial encounter Condition: Stable Disposition: HOME, SELF-CARE Additional Instructions: Syncopal Episode Syncope (fainting or near-fainting) can occur from many different health problems. Or it can be a simple fainting spell requiring no treatment. It is safe for you to go home, but further evaluation will likely be necessary. Your work-up may include tests for internal bleeding, heart disease, medication problems, or near-strokes. Tests are not always required, however, depending on the nature of your problem. The warning signs of an impending faint include: dizziness, lightheadedness, nausea, hot flashes, tingling, and weakness. If this happens, lay down and put your feet up, then wait until all of these symptoms have passed before standing up again. If these episodes become recurrent, or if you develop chest pain, heart palpitations, mental confusion, blurred vision, or headache, then you should call the physician, or go to the emergency room. Hand Contusion Your injury has resulted in a contusion -- a crushing of the deep tissues. No injury to important structures was detected during the physician's exam. Contusions vary in the amount of pain they cause, and in the length of time required for healing. Typically, the area will become bruised, and will remain painful to touch for two or three weeks. However, most patients are back to working and playing within a few days. After the initial period of rest and cold-packs, your symptoms (together with the doctor's recommendations) will determine how rapidly you can get back to full activity. Usually this means "do what feels okay, but don't do things that hurt." If re-examination was recommended, it's important to follow up as instructed. Call the doctor or return any time if pain increases, if swelling becomes severe, if you develop numbness or weakness in an injured extremity, or if any other alarming symptoms occur. * Take Tylenol and ibuprofen for pain as needed. Take the pain medication as dispensed if the Tylenol and Advil does not control your pain. Use the splint to protect your hand for the next few days. Use ice packs on your hand to help reduce swelling today. Follow-up with your primary care provider if your hand does not improve. Dr. Harvey Alba is a graphic coordinator. His office will be contacting you to get you in for an appointment to evaluate your passing out episodes. It would be best if you do not drive, climb ladders or do any other activity that would put you or others at risk if you have another one of your blacking out spells. RETURN TO THE EMERGENCY ROOM IF ANY NEW OR WORSENING SYMPTOMS. Referrals: HARVEY ALBA MD [ACTIVE STAFF] - Follow up as needed
--- NOTE | 2020-06-29 15:39 | RADIOLOGY REPORT (SQ) ---
EXAM DESCRIPTION: HAND RIGHT 3 VIEWS IMAGES COMPLETED DATE/TIME: 06/29/2020 3:27 pm REASON FOR STUDY: Syncope, fall, right dorsal hand injury COMPARISON: None. EXAM PARAMETERS: NUMBER OF VIEWS: Three views. TECHNIQUE: AP, lateral and oblique radiographic images acquired of the right hand. LIMITATIONS: None. FINDINGS: MINERALIZATION: Normal. BONES: No acute fracture or dislocation. JOINTS: No effusions. SOFT TISSUES: No soft tissue swelling or radiopaque foreign body. OTHER: No other findings. IMPRESSION: No acute osseous abnormality of the right hand. TECHNICAL DOCUMENTATION: JOB ID: [id number] [employer]- All Rights Reserved Reading location - IP/workstation name: [email or web address]
--- NOTE | 2020-06-29 15:44 | RADIOLOGY REPORT (SQ) ---
EXAM DESCRIPTION: RIBS RIGHT W/PA CHEST IMAGES COMPLETED DATE/TIME: 06/29/2020 3:27 pm REASON FOR STUDY: Syncope, fall, right rib injury COMPARISON: None. TECHNIQUE: A PA view of the chest and PA and oblique views of the right ribs were obtained. NUMBER OF VIEWS: Three views. LIMITATIONS: None. FINDINGS: FRONTAL CXR: The cardiomediastinal silhouette and pulmonary vasculature are within normal limits. There is no consolidation, pleural effusion or pneumothorax. RIBS: No displaced rib fractures. OTHER: No other findings. IMPRESSION: No acute cardiopulmonary process and no acute displaced right-sided rib fractures. COMMENT: SITE OF TRAUMA/COMPLAINT MARKED/STAMP COMPLETED: NO. TECHNICAL DOCUMENTATION: JOB ID: [id number] 2010 [employer]- All Rights Reserved Reading location - IP/workstation name: [email or web address]
[2020-06-29 16:07] LABS: ABSOLUTE EOSINOPHILS # (AUTO) 0.2 10^3/uL (0.0-0.6); ABSOLUTE LYMPHOCYTES (AUTO) 4.2 10^3/uL (0.5-4.7); ABSOLUTE MONOCYTES (AUTO) 0.7 10^3/uL (0.1-1.4); ABSOLUTE NEUT (AUTO) 7.9 10^3/uL (1.7-8.2); BASOPHILS % (AUTO) 0.2 % (0-2); EOSINOPHILS % (AUTO) 1.8 % (0-6); HEMATOCRIT 41.4 % (36.0-47.0); HEMOGLOBIN 13.7 g/dL (12.0-15.5); LYMPHOCYTES % (AUTO) 32.1 % (13-45); MEAN CORPUSCULAR HEMOGLOBIN 28.6 pg (27.0-33.4); MEAN CORPUSCULAR HGB CONC 33.1 g/dL (32.0-36.0); MEAN CORPUSCULAR VOLUME 86 fl (80-97); MONOCYTES % (AUTO) 5.1 % (3-13); PLATELET COUNT 231 10^3/uL (150-450); RED BLOOD COUNT 4.81 10^6/uL (3.72-5.28); RED CELL DISTRIBUTION WIDTH 14.1 % (11.5-14.0); SEGMENTED NEUTROPHILS % (AUTO) 60.8 % (42-78); TOTAL CELLS COUNTED % (AUTO) 100 %; WHITE BLOOD COUNT 12.9 10^3/uL (4.0-10.5)
[2020-06-29 16:26] LABS: ALBUMIN 4.1 g/dL (3.5-5.0); ALKALINE PHOSPHATASE 63 U/L (38-126); ASPARTATE AMINO TRANSFERASE 27 U/L (14-36); BILIRUBIN,TOTAL 0.3 mg/dL (0.2-1.3); BLOOD UREA NITROGEN 13 mg/dL (7-20); CALCIUM 9.3 mg/dL (8.4-10.2); GLUCOSE 92 mg/dL (75-110); POTASSIUM 4.6 mmol/L (3.6-5.0); TOTAL PROTEIN 6.7 g/dL (6.3-8.2)
[2020-06-29 16:31] LABS: ANION GAP 5 (5-19); CARBON DIOXIDE 26 mmol/L (22-30); CHLORIDE 107 mmol/L (98-107)
[2020-06-29] MEDS ORDERED: HYDROCODONE/ACETAMINOPHEN 5-325 MG (6 TAB/ER DISP) PO PRN (16:36)
[2020-06-29 16:54] VITALS: BP 116/75
--- NOTE | 2020-06-29 19:08 | EKG REPORT ---
SEVERITY:- NORMAL ECG - SINUS RHYTHM : Confirmed by: Ravinder Garvin MD 29-Jun-2020 19:07:33
== END 2020-06-29 16:55 | disposition home or self-care (01) ==
LOC: ER 14:16
DX: S60.221A Contusion of right hand, initial encounter (principal); S29.9XXA Unspecified injury of thorax, initial encounter; W18.2XXA Fall in (into) shower or empty bathtub, initial encounter; Y93.E1 Activity, personal bathing and showering; R55 Syncope and collapse; H57.89 Other specified disorders of eye and adnexa; F17.210 Nicotine dependence, cigarettes, uncomplicated; Z86.19 Personal history of other infectious and parasitic diseases
CPT/HCPCS: 36415; 80053; 84443; 84703; 85025; 93005; 93010; 99285